=== PATIENT | female | born 1945 | race Caucasian/White ===

== ENCOUNTER → 2017-09-11 | Outpatient (CLI) | payer MEDICARE, OTHER ==
[2017-09-11 09:09] LABS: Basophils % (A) 0 %; CH 30.5; CHCM 32.6; Eosinophils # (A) 0.4 k/uL (0-0.7); Eosinophils % (A) 5 %; HCT 38.9 % (34.0-46.0); HDW 2.73; HGB 12.6 gm/dL (11.4-16.0); Luc # (Auto) 0.22; Luc % (Auto) 3; Lymphocytes # (A) 1.4 k/uL (1.0-4.8); Lymphocytes % (A) 19 %; MCH 30.3 pg (25.0-35.0); MCHC 32.3 g/dL (31.0-37.0); Mean Platelet Volume 8.4; Monocytes # (A) 0.7 k/uL (0-1.0); Monocytes % (A) 9 %; Neutrophils # (A) 4.7 k/uL (1.3-7.7); Neutrophils % (A) 64 %; RBC 4.14 m/uL (3.80-5.40); RDW 13.5 % (11.5-15.5); WBC 7.3 k/uL (3.8-10.6); WBC (Perox) 7.12
[2017-09-11 09:14] LABS: ALT 44 U/L (9-52); AST 34 U/L (14-36); Alkaline Phosphatase 96 U/L (38-126); Anion Gap 10 mmol/L; Blood Urea Nitrogen 19 mg/dL (7-17); Calcium 9.3 mg/dL (8.4-10.2); Carbon Dioxide 30 mmol/L (22-30); Chloride 102 mmol/L (98-107); Cholesterol 159 mg/dL (<200); Glucose 93 mg/dL (74-99); HDL Cholesterol 61 mg/dL (40-60); Non-African American GFR(MDRD) >60 (>60 ml/min/1.73 sqM); Potassium 3.8 mmol/L (3.5-5.1); Sodium 142 mmol/L (137-145); Total Bilirubin 0.4 mg/dL (0.2-1.3); Total Protein 7.1 g/dL (6.3-8.2)
== END | disposition home or self-care (01) ==
LOC: LABWHC1 08:24
PROVIDERS: ATTEND Internal Medicine Infectious Disease
DX: E78.00 Pure hypercholesterolemia, unspecified (principal); E03.8 Other specified hypothyroidism; E55.9 Vitamin D deficiency, unspecified; I10 Essential (primary) hypertension
CPT/HCPCS: 36415; 80053; 80061; 82306; 84439; 84443; 85025

== ENCOUNTER → 2018-06-03 | Outpatient (CLI) | payer MEDICARE, OTHER ==
[2018-06-03 10:15] LABS: Basophils % (A) 0 %; Eosinophils # (A) 0.3 k/uL (0-0.7); Eosinophils % (A) 4 %; HCT 37.9 % (34.0-46.0); HGB 12.6 gm/dL (11.4-16.0); Lymphocytes # (A) 1.6 k/uL (1.0-4.8); Lymphocytes % (A) 25 %; MCH 30.5 pg (25.0-35.0); MCHC 33.2 g/dL (31.0-37.0); MCV 91.8 fL (80.0-100.0); Mean Platelet Volume 7.8; Monocytes # (A) 0.4 k/uL (0-1.0); Monocytes % (A) 7 %; Neutrophils # (A) 3.9 k/uL (1.3-7.7); Neutrophils % (A) 60 %; Platelet Count 216 k/uL (150-450); RBC 4.13 m/uL (3.80-5.40); RDW 14.2 % (11.5-15.5); WBC 6.5 k/uL (3.8-10.6)
[2018-06-03 11:58] LABS: Calcium 9.6 mg/dL (8.4-10.2); Potassium 4.2 mmol/L (3.5-5.1)
[2018-06-03 12:15] LABS: T4, Free (Free Thyroxine) 0.91 ng/dL (0.78-2.19)
== END | disposition home or self-care (01) ==
LOC: LABWHC1 09:45
PROVIDERS: ATTEND Internal Medicine Infectious Disease
DX: E78.00 Pure hypercholesterolemia, unspecified (principal); I10 Essential (primary) hypertension; E03.9 Hypothyroidism, unspecified; E55.9 Vitamin D deficiency, unspecified
CPT/HCPCS: 36415; 80048; 82306; 84439; 84443; 84450; 84460; 85025

== ENCOUNTER → 2020-02-23 | Outpatient (CLI) | payer MEDICARE ==
[2020-02-23 09:49] LABS: Basophils % (A) 0 %; Eosinophils # (A) 0.6 k/uL (0-0.7); Eosinophils % (A) 8 %; HCT 37.7 % (34.0-46.0); Lymphocytes # (A) 1.5 k/uL (1.0-4.8); Lymphocytes % (A) 20 %; MCH 28.9 pg (25.0-35.0); MCHC 31.9 g/dL (31.0-37.0); MCV 90.6 fL (80.0-100.0); Mean Platelet Volume 8.7; Monocytes # (A) 0.5 k/uL (0-1.0); Monocytes % (A) 7 %; Neutrophils # (A) 4.5 k/uL (1.3-7.7); Neutrophils % (A) 62 %; Platelet Count 192 k/uL (150-450); RBC 4.16 m/uL (3.80-5.40); RDW 13.9 % (11.5-15.5); WBC 7.3 k/uL (3.8-10.6)
[2020-02-23 17:25] LABS: African American GFR (CKD) 72.5 (60.0-200.0); Albumin 4.1 g/dL (3.80-4.90); Albumin/Globulin Ratio 1.71 (1.60-3.17); Anion Gap 9.9 mmol/L (4.00-12.00); BUN/Creat Ratio 22.22 Ratio (12.00-20.00); Calcium 9.2 mg/dL (8.7-10.3); Carbon Dioxide 31.1 mmol/L (21.6-31.8); Chol/HDL Ratio 2.79; Globulin 2.4 g/dL (1.6-3.3); LDL Cholesterol,Calculated 72.6 mg/dL (0.0-131.0); Non-African American GFR(CKD) 62.5 (60.0-200.0); Potassium 3.5 mmol/L (3.5-5.5); Total Bilirubin 0.5 mg/dL (0.2-1.2); Total Protein 6.5 g/dL (6.2-8.2); VLDL Calculation 27.4 mg/dL (5.00-40.00)
== END | disposition home or self-care (01) ==
LOC: LABWHC1 08:58
PROVIDERS: ATTEND Internal Medicine Infectious Disease
DX: E78.00 Pure hypercholesterolemia, unspecified (principal); E03.9 Hypothyroidism, unspecified; E55.9 Vitamin D deficiency, unspecified
CPT/HCPCS: 36415; 80053; 80061; 82306; 85025

== ENCOUNTER → 2020-10-10 | Outpatient (CLI) | payer MEDICARE ==
[2020-10-10 10:41] LABS: Basophils % (A) 1 %; Eosinophils # (A) 0.5 k/uL (0-0.7); Eosinophils % (A) 6 %; HGB 12.1 gm/dL (11.4-16.0); Lymphocytes # (A) 1.7 k/uL (1.0-4.8); Lymphocytes % (A) 21 %; MCH 29.2 pg (25.0-35.0); MCHC 32.7 g/dL (31.0-37.0); MCV 89.4 fL (80.0-100.0); Mean Platelet Volume 8.5; Monocytes # (A) 0.5 k/uL (0-1.0); Monocytes % (A) 6 %; Neutrophils # (A) 5.2 k/uL (1.3-7.7); Neutrophils % (A) 63 %; Platelet Count 220 k/uL (150-450); RBC 4.14 m/uL (3.80-5.40); RDW 14.6 % (11.5-15.5); WBC 8.3 k/uL (3.8-10.6)
[2020-10-10 18:48] LABS: African American GFR (CKD) 63.4 (60.0-200.0); Anion Gap 10.5 mmol/L (4.00-12.00); Calcium 9.2 mg/dL (8.7-10.3); Carbon Dioxide 29.5 mmol/L (21.6-31.8); Chol/HDL Ratio 2.89; LDL Cholesterol,Calculated 79.6 mg/dL (0.0-131.0); Non-African American GFR(CKD) 54.7 (60.0-200.0); Potassium 3.6 mmol/L (3.5-5.5); VLDL Calculation 26.4 mg/dL (5.00-40.00)
[2020-10-10 19:22] LABS: Hemoglobin A1C 6.3 % (4.0-6.0)
== END | disposition home or self-care (01) ==
LOC: LABWHC1 09:44
PROVIDERS: ATTEND Internal Medicine Infectious Disease
DX: E03.9 Hypothyroidism, unspecified (principal); E11.9 Type 2 diabetes mellitus without complications; E55.9 Vitamin D deficiency, unspecified; E78.00 Pure hypercholesterolemia, unspecified; I10 Essential (primary) hypertension
CPT/HCPCS: 36415; 80048; 80061; 82306; 83036; 84439; 84443; 85025

== ENCOUNTER 2021-03-04 15:04 | Observation (INO) | payer MEDICARE ==
[2021-03-04] MEDS: ASPIRIN 81 MG PO STA ×2 (16:05→16:07)
[2021-03-04 16:06] LABS: Basophils % (A) 0 %; Eosinophils # (A) 0.6 k/uL (0-0.7); Eosinophils % (A) 6 %; HCT 36.2 % (34.0-46.0); HGB 12.4 gm/dL (11.4-16.0); Lymphocytes # (A) 1.7 k/uL (1.0-4.8); Lymphocytes % (A) 15 %; MCHC 34.3 g/dL (31.0-37.0); MCV 87.6 fL (80.0-100.0); Mean Platelet Volume 8.8; Monocytes # (A) 0.7 k/uL (0-1.0); Monocytes % (A) 6 %; Neutrophils % (A) 71 %; Platelet Count 227 k/uL (150-450); RBC 4.13 m/uL (3.80-5.40); RDW 14.1 % (11.5-15.5); WBC 11.2 k/uL (3.8-10.6)
--- NOTE | 2021-03-04 16:14 | ED ---
General Adult HPI - General Chief complaint: Chest Pain Stated complaint: Chest pain Time Seen by Provider: 03/04/21 15:07 Source: patient, RN/MD, RN notes reviewed Mode of arrival: wheelchair Limitations: no limitations - History of Present Illness Initial comments: Patient is a pleasant 75-year-old female presenting to the emergency Department with complaints of chest discomfort. Symptoms have been intermittent over the past week. Difficulty describing symptoms. No radiation. Patient does have occasional dyspnea however is unclear whether or not it is associated with chest discomfort or from her chronic COPD/ALLERGIES. Patient does have occasional associated sweating. No nausea. Patient did see Dr. Felder prior to arrival with concern regarding her EKG and symptoms. No chest discomfort at this time - Related Data Home Medications Medication Instructions Recorded Confirmed Albuterol Sulfate [Proair Hfa] 2 puff INHALATION RT-Q6H PRN 03/04/21 03/04/21 Aspirin EC [Ecotrin] 325 mg PO DAILY 03/04/21 03/04/21 Atenolol [Tenormin] 50 mg PO DAILY 03/04/21 03/04/21 Atorvastatin [Lipitor] 10 mg PO HS 03/04/21 03/04/21 Biotin 10,000 mcg PO DAILY 03/04/21 03/04/21 Budesonide/Formoterol Fumarate 2 puff INHALATION RT-BID 03/04/21 03/04/21 [Symbicort 160-4.5 Mcg Inhaler] Furosemide [Lasix] 40 mg PO DAILY 03/04/21 03/04/21 Levalbuterol Nebulized [Xopenex 1.25 mg INHALATION RT-QID PRN 03/04/21 03/04/21 Nebulized] Levothyroxine Sodium [Synthroid] 88 mcg PO DAILY 03/04/21 03/04/21 Loratadine 10 mg PO DAILY 03/04/21 03/04/21 Losartan [Cozaar] 50 mg PO DAILY 03/04/21 03/04/21 Montelukast Sodium [Singulair] 10 mg PO HS 03/04/21 03/04/21 Multivitamins, Thera [Multivitamin 1 tab PO DAILY 03/04/21 03/04/21 (formulary)] Mupirocin 2% Oint [Bactroban 2% 1 applic EA NOSTRIL BID 03/04/21 03/04/21 Oint] Omeprazole [PriLOSEC] 40 mg PO HS 03/04/21 03/04/21 Potassium Chloride ER [K-Dur 20] 20 meq PO DAILY@1700 03/04/21 03/04/21 Tiotropium 2.5 Mcg/Puff [Spiriva 2 puff INHALATION RT-DAILY 03/04/21 03/04/21 Respimat 2.5 Mcg] Vit C/E/Zn/Coppr/Lutein/Zeaxan 1 cap PO BID 03/04/21 03/04/21 [Preservision Areds 2 Softgel] Allergies Allergy/AdvReac Type Severity Reaction Status Date / Time No Known Allergies Allergy Verified 03/04/21 16:28 Review of Systems ROS Statement: Those systems with pertinent positive or pertinent negative responses have been documented in the HPI. ROS Other: All systems not noted in ROS Statement are negative. Constitutional: Denies: fever Eyes: Denies: eye pain ENT: Denies: ear pain Respiratory: Reports: as per HPI. Denies: cough Cardiovascular: Reports: as per HPI, chest pain Endocrine: Denies: fatigue Gastrointestinal: Denies: abdominal pain Genitourinary: Denies: urgency Musculoskeletal: Denies: back pain Skin: Denies: rash Neurological: Denies: weakness Past Medical History Past Medical History: Asthma, COPD, GERD/Reflux, Hypertension, Thyroid Disorder History of Any Multi-Drug Resistant Organisms: None Reported Past Surgical History: Hysterectomy, Orthopedic Surgery Additional Past Surgical History / Comment(s): right knee Past Psychological History: No Psychological Hx Reported Smoking Status: Never smoker Past Alcohol Use History: Rare Past Drug Use History: None Reported General Exam Limitations: no limitations General appearance: alert, in no apparent distress Head exam: Present: atraumatic Eye exam: Present: normal appearance Neck exam: Present: normal inspection Respiratory exam: Present: normal lung sounds bilaterally. Absent: chest wall tenderness Cardiovascular Exam: Present: regular rate, normal rhythm Expanded Peripheral pulses: 2+: Radial (R), Radial (L), Posterior Tibialis (R), Posterior Tibialis (L) GI/Abdominal exam: Present: soft. Absent: tenderness Extremities exam: Present: normal inspection. Absent: pedal edema, calf tenderness Neurological exam: Present: alert Psychiatric exam: Present: normal affect, normal mood Skin exam: Present: normal color Course Vital Signs 03/04/21 03/04/21 15:08 16:07 Temperature 98.3 F Pulse Rate 95 96 Respiratory 22 18 Rate Blood Pressure 136/71 117/64 O2 Sat by Pulse 99 98 Oximetry EKG Findings - EKG Comments: EKG Findings:: Normal sinus rhythm with a rate of 99. IN 1:30. QRS 88. QT 372. QTC 477. Left axis. Left anterior fascicular block. LVH criteria. Nonspecific ST-T. Medical Decision Making - Medical Decision Making Patient reevaluated. Patient and family updated. Case was discussed with Dr. Feledr who did want his patient admitted with cardiology consult and IV heparin. - Lab Data Result diagrams: 03/04/21 15:53 03/04/21 15:53 Lab Results 03/04/21 03/04/21 03/04/21 Range/Units 15:53 15:53 15:53 WBC 11.2 H (3.8-10.6) k/uL RBC 4.13 (3.80-5.40) m/uL Hgb 12.4 (11.4-16.0) gm/dL Hct 36.2 (34.0-46.0) % MCV 87.6 (80.0-100.0) fL MCH 30.0 (25.0-35.0) pg MCHC 34.3 (31.0-37.0) g/dL RDW 14.1 (11.5-15.5) % Plt Count 227 (150-450) k/uL MPV 8.8 Neutrophils % 71 % Lymphocytes % 15 % Monocytes % 6 % Eosinophils % 6 % Basophils % 0 % Neutrophils # 8.0 H (1.3-7.7) k/uL Lymphocytes # 1.7 (1.0-4.8) k/uL Monocytes # 0.7 (0-1.0) k/uL Eosinophils # 0.6 (0-0.7) k/uL Basophils # 0.0 (0-0.2) k/uL PT 9.9 (9.0-12.0) sec INR 0.9 (<1.2) APTT 22.7 (22.0-30.0) sec Sodium 138 (137-145) mmol/L Potassium 3.6 (3.5-5.1) mmol/L Chloride 100 (98-107) mmol/L Carbon Dioxide 27 (22-30) mmol/L Anion Gap 11 mmol/L BUN 21 H (7-17) mg/dL Creatinine 0.86 (0.52-1.04) mg/dL Est GFR (CKD-EPI)AfAm 77 (>60 ml/min/1.73 sqM) Est GFR (CKD-EPI)NonAf 66 (>60 ml/min/1.73 sqM) Glucose 119 H (74-99) mg/dL Calcium 9.6 (8.4-10.2) mg/dL Magnesium 1.5 L (1.6-2.3) mg/dL Total Bilirubin 0.4 (0.2-1.3) mg/dL AST 42 H (14-36) U/L ALT 41 H (4-34) U/L Alkaline Phosphatase 159 H (38-126) U/L Troponin I (0.000-0.034) ng/mL Total Protein 7.4 (6.3-8.2) g/dL Albumin 4.2 (3.5-5.0) g/dL 03/04/21 Range/Units 15:53 WBC (3.8-10.6) k/uL RBC (3.80-5.40) m/uL Hgb (11.4-16.0) gm/dL Hct (34.0-46.0) % MCV (80.0-100.0) fL MCH (25.0-35.0) pg MCHC (31.0-37.0) g/dL RDW (11.5-15.5) % Plt Count (150-450) k/uL MPV Neutrophils % % Lymphocytes % % Monocytes % % Eosinophils % % Basophils % % Neutrophils # (1.3-7.7) k/uL Lymphocytes # (1.0-4.8) k/uL Monocytes # (0-1.0) k/uL Eosinophils # (0-0.7) k/uL Basophils # (0-0.2) k/uL PT (9.0-12.0) sec INR (<1.2) APTT (22.0-30.0) sec Sodium (137-145) mmol/L Potassium (3.5-5.1) mmol/L Chloride (98-107) mmol/L Carbon Dioxide (22-30) mmol/L Anion Gap mmol/L BUN (7-17) mg/dL Creatinine (0.52-1.04) mg/dL Est GFR (CKD-EPI)AfAm (>60 ml/min/1.73 sqM) Est GFR (CKD-EPI)NonAf (>60 ml/min/1.73 sqM) Glucose (74-99) mg/dL Calcium (8.4-10.2) mg/dL Magnesium (1.6-2.3) mg/dL Total Bilirubin (0.2-1.3) mg/dL AST (14-36) U/L ALT (4-34) U/L Alkaline Phosphatase (38-126) U/L Troponin I <0.012 (0.000-0.034) ng/mL Total Protein (6.3-8.2) g/dL Albumin (3.5-5.0) g/dL - Radiology Data Radiology results: image reviewed (Chest x-ray shows no acute process) Critical Care Time Critical Care Time: Yes Total Critical Care Time: 31 Disposition Clinical Impression: Unstable angina pectoris Disposition: ADMITTED IP TO THIS HOSP Is patient prescribed a controlled substance at d/c from ED?: No Referrals: Kiley Felder MD [Primary Care Provider] - 1-2 days Decision Time: 17:28
[2021-03-04 16:15] LABS: INR 0.9 (<1.2); Partial Thromboplastin Time 22.7 sec (22.0-30.0); Prothrombin Time 9.9 sec (9.0-12.0)
[2021-03-04 16:25] LABS: Albumin 4.2 g/dL (3.5-5.0); Calcium 9.6 mg/dL (8.4-10.2); Magnesium 1.5 mg/dL (1.6-2.3); Potassium 3.6 mmol/L (3.5-5.1); Total Bilirubin 0.4 mg/dL (0.2-1.3); Total Protein 7.4 g/dL (6.3-8.2)
--- NOTE | 2021-03-04 17:03 | XR ---
EXAMINATION TYPE: XR chest 2V DATE OF EXAM: 03/04/2021 COMPARISON: NONE HISTORY: Chest pain TECHNIQUE: 2 views FINDINGS: Heart is normal. Thoracic aorta is atheromatous. Lungs are clear of infiltrate. There is no heart failure. There is osteopenia and mild compression deformity of numerous thoracic vertebra up to 20%. There is no pleural effusion. IMPRESSION: No active cardiopulmonary disease. Minimal pulmonary fibrotic changes. Normal heart.
[2021-03-04] MEDS ORDERED: HEPARIN SODIUM 1,000 UN/ML (10ML VL) IV ONE (17:29)
[2021-03-04] MEDS ORDERED: HEPARIN SOD,PORK IN 0.45% NACL 25,000 UNIT in 0.45% NACL 1 250ML.BAG IV SCH (17:30)
[2021-03-04] MEDS: NITROGLYCERIN OINT 1 INCH/GM PACKET TOPICAL SCH ×2 (19:14→23:53)
[2021-03-04] MEDS ORDERED: NON FORMULARY DRUG (Levalbuterol Nebulized 1.25 MG/3 ML Ml) INHALATION PRN (20:35)
[2021-03-04] MEDS ORDERED: DILTIAZEM DRIP BOLUS FROM BAG 1 MG SOLN IV ONE (21:00)
[2021-03-04] MEDS: DILTIAZEM 125 MG in SODIUM CHLORIDE 0.9% 100 ML IV SCH (21:06)
[2021-03-04] MEDS: PANTOPRAZOLE 40 MG TABLET PO SCH (23:05)
[2021-03-04] MEDS: METOPROLOL TARTRATE 50 MG TAB PO SCH (23:05)
[2021-03-04] MEDS: MONTELUKAST 10 MG TAB PO SCH (23:05)
[2021-03-04] MEDS: ATORVASTATIN 10 MG TAB PO SCH (23:06)
[2021-03-05 01:52] VITALS: RESP 16
[2021-03-05] MEDS: ALBUTEROL NEBULIZED 2.5 MG/3 ML INHALATION PRN ×3 (03:01→12:07)
[2021-03-05] MEDS: NITROGLYCERIN OINT 1 INCH/GM PACKET TOPICAL SCH (05:32)
[2021-03-05 05:44] LABS: Basophils % (A) 0 %; Eosinophils # (A) 0.8 k/uL (0-0.7); Eosinophils % (A) 8 %; HCT 33.9 % (34.0-46.0); HGB 11.6 gm/dL (11.4-16.0); Lymphocytes % (A) 20 %; MCH 30.3 pg (25.0-35.0); MCHC 34.2 g/dL (31.0-37.0); MCV 88.5 fL (80.0-100.0); Monocytes # (A) 0.7 k/uL (0-1.0); Monocytes % (A) 7 %; Neutrophils % (A) 62 %; Platelet Count 203 k/uL (150-450); RBC 3.83 m/uL (3.80-5.40); RDW 14.1 % (11.5-15.5); WBC 9.6 k/uL (3.8-10.6)
[2021-03-05 06:16] LABS: ALT 36 U/L (4-34); AST 43 U/L (14-36); African American GFR (CKD) 82 (>60 ml/min/1.73 sqM); Albumin 3.4 g/dL (3.5-5.0); Albumin/Globulin Ratio 1.2; Alkaline Phosphatase 127 U/L (38-126); Anion Gap 5 mmol/L; Blood Urea Nitrogen 18 mg/dL (7-17); Calcium 8.7 mg/dL (8.4-10.2); Carbon Dioxide 29 mmol/L (22-30); Chloride 102 mmol/L (98-107); Cholesterol 148 mg/dL (<200); Globulin 2.8 g/dL; Glucose 105 mg/dL (74-99); HDL Cholesterol 57 mg/dL (40-60); LDL Cholesterol,Calculated 64 mg/dL (0-99); Non-African American GFR(CKD) 71 (>60 ml/min/1.73 sqM); Potassium 3.7 mmol/L (3.5-5.1); Sodium 136 mmol/L (137-145); Total Bilirubin 0.8 mg/dL (0.2-1.3); Total Protein 6.2 g/dL (6.3-8.2); Triglycerides 136 mg/dL (<150)
[2021-03-05] MEDS: SYMBICORT 160-4.5 MCG INHALER INHALATION SCH ×2 (07:36→20:06)
[2021-03-05] MEDS: TIOTROPIUM 2.5 MCG INHALER INHALATION SCH (07:36)
[2021-03-05] MEDS ORDERED: Magnesium Replacement Protocol 1 EACH MISC MISCELLANE PRN (07:42)
[2021-03-05] MEDS: MAGNESIUM SULFATE-D5W PMX 1 GM in DEXTROSE/WATER 1 100ML.BAG IVPB SCH ×2 (08:44→10:06)
[2021-03-05] MEDS: FUROSEMIDE 40 MG TAB PO SCH (08:45)
[2021-03-05] MEDS: LOSARTAN 50 MG TAB PO SCH (08:45)
[2021-03-05] MEDS: METOPROLOL TARTRATE 50 MG TAB PO SCH ×2 (08:45→20:21)
[2021-03-05] MEDS: LEVOTHYROXINE 88 MCG TAB PO SCH (08:45)
[2021-03-05] MEDS: LORATADINE 10 MG TAB PO SCH (08:45)
[2021-03-05] MEDS: MULTIVITAMINS, THERA 1 EACH TAB PO SCH (08:45)
[2021-03-05] MEDS ORDERED: ASPIRIN 81 MG PO SCH (09:00)
[2021-03-05] MEDS ORDERED: ASPIRIN 325 MG TAB PO SCH (09:00)
--- NOTE | 2021-03-05 10:01 | P.CRDCN ---
History of Present Illness History of present illness: HISTORY OF PRESENTING ILLNESS This is a pleasant 75-year-old female past medical history significant for hypertension, dyslipidemia and COPD. She follows in the office with Dr Maxi alcantara. We have been asked to see in consultation for chest pain. She presented to the hospital yesterday with an episode of tightness in the chest in the midsternal region associated with palpitations and a rapid heartbeat. Episode lasted for approximately 10 minutes and resolved on its own. During this episode she also felt mildly short of breath. This occurred again last night was she was in the hospital. EKG obtained at that time revealed atrial fibrillation with rapid ventricular rate. She was momentarily started on a Cardizem drip and spontaneously converted back to sinus mechanism. This morning she continues to maintain sinus mechanism she has had no further symptoms of chest discomfort. Chest x-ray is negative for an acute cardiopulmonary process with minimal pulmonary fibrotic changes noted. Laboratory data reviewed, WBC on admission 11.2 repeat today 9.6, hemoglobin 11.6, platelets 203, sodium 136, potassium 3.7, creatinine 0.81, magnesium on admission 1.5, troponins negative 3, LDL 64 and HDL 57. Current daily cardiac medications include atenolol 50 mg daily, atorvastatin 10 mg daily, Lasix 40 mg daily, losartan 50 mg daily and aspirin 325 mg daily. REVIEW OF SYSTEMS At the time of my exam: CONSTITUTIONAL: Denies fever or chills. CARDIOVASCULAR: Denies chest pain, shortness of breath, orthopnea, PND or palpitations. RESPIRATORY: Denies cough. GASTROINTESTINAL: Denies abdominal pain, diarrhea, constipation, nausea or vomiting. MUSCULOSKELETAL: Denies myalgias. NEUROLOGIC: Denies numbness, tingling, headacbe or weakness. ENDOCRINE: Denies fatigue, weight change, polydipsia or polyurina. GENITOURINARY: Denies burning, hematuria or urgency with micturation. HEMATOLOGIC: Denies history of anemia or bleeding. PHYSICAL EXAMINATION Blood pressure 125/74 heart rate 81 afebrile and maintaining oxygen saturation on nasal cannula. CONSTITUTIONAL: No apparent distress. HEENT: Head is normocephalic. Pupils are equal, round. Sclerae anicteric. Mucous membranes of the mouth are moist. No JVD. No carotid bruit. CHEST EXAMINATION: Lungs are clear to auscultation. No chest wall tenderness is noted on palpation or with deep breathing. HEART EXAMINATION: Regular rate and rhythm. S1, S2 heard. Systolic ejection murmur at the base, no gallops or rub. ABDOMEN: Soft, nontender. Positive bowel sounds. EXTREMITIES: 2+ peripheral pulses, no lower extremity edema and no calf tenderness. NEUROLOGIC EXAMINATION: Patient is awake, alert and oriented x3. ASSESSMENT Chest pain and palpitations New onset paroxysmal atrial fibrillation Hypomagnesemia Hypertension Dyslipidemia Obesity, BMI 32 PLAN An acute coronary event has been ruled out. Replace magnesium per protocol. Obtain 2-D echocardiogram and Doppler study to assess cardiac structure and function. Check the cost of Eliquis 5 mg twice a day. Obtain records from her primary child care counselor previous cardiac testing for review. Further recommendations to follow based upon clinical course. Thank you kindly for this consultation. Nurse Practitioner note has been reviewed, I agree with a documented findings and plan of care. Patient was seen and examined. Past Medical History Past Medical History: Asthma, COPD, GERD/Reflux, Hypertension, Thyroid Disorder History of Any Multi-Drug Resistant Organisms: None Reported Past Surgical History: Hysterectomy, Orthopedic Surgery Additional Past Surgical History / Comment(s): right knee Past Anesthesia/Blood Transfusion Reactions: Postoperative Nausea & Vomiting (PONV) Past Psychological History: No Psychological Hx Reported Smoking Status: Never smoker Past Alcohol Use History: Rare Past Drug Use History: None Reported Medications and Allergies Home Medications Medication Instructions Recorded Confirmed Type Albuterol Sulfate [Proair Hfa] 2 puff INHALATION RT-Q6H PRN 03/04/21 03/04/21 History Aspirin EC [Ecotrin] 325 mg PO DAILY 03/04/21 03/04/21 History Atenolol [Tenormin] 50 mg PO DAILY 03/04/21 03/04/21 History Atorvastatin [Lipitor] 10 mg PO HS 03/04/21 03/04/21 History Biotin 10,000 mcg PO DAILY 03/04/21 03/04/21 History Budesonide/Formoterol Fumarate 2 puff INHALATION RT-BID 03/04/21 03/04/21 History [Symbicort 160-4.5 Mcg Inhaler] Furosemide [Lasix] 40 mg PO DAILY 03/04/21 03/04/21 History Levalbuterol Nebulized [Xopenex 1.25 mg INHALATION RT-QID PRN 03/04/21 03/04/21 History Nebulized] Levothyroxine Sodium [Synthroid] 88 mcg PO DAILY 03/04/21 03/04/21 History Loratadine 10 mg PO DAILY 03/04/21 03/04/21 History Losartan [Cozaar] 50 mg PO DAILY 03/04/21 03/04/21 History Montelukast Sodium [Singulair] 10 mg PO HS 03/04/21 03/04/21 History Multivitamins, Thera [Multivitamin 1 tab PO DAILY 03/04/21 03/04/21 History (formulary)] Mupirocin 2% Oint [Bactroban 2% 1 applic EA NOSTRIL BID 03/04/21 03/04/21 History Oint] Omeprazole [PriLOSEC] 40 mg PO HS 03/04/21 03/04/21 History Potassium Chloride ER [K-Dur 20] 20 meq PO DAILY@1700 03/04/21 03/04/21 History Tiotropium 2.5 Mcg/Puff [Spiriva 2 puff INHALATION RT-DAILY 03/04/21 03/04/21 History Respimat 2.5 Mcg] Vit C/E/Zn/Coppr/Lutein/Zeaxan 1 cap PO BID 03/04/21 03/04/21 History [Preservision Areds 2 Softgel] Apixaban [Eliquis] 5 mg PO BID #60 tab 03/05/21 Rx Allergies Allergy/AdvReac Type Severity Reaction Status Date / Time No Known Allergies Allergy Verified 03/04/21 16:28 Physical Exam Vitals: Vital Signs Temp Pulse Pulse Resp BP BP Pulse Ox 03/05/21 07:49 81 03/05/21 07:36 79 94 L 03/05/21 03:08 84 03/05/21 03:02 84 03/05/21 02:00 97.5 F L 66 16 125/74 96 03/05/21 00:00 65 114/74 92 L 03/04/21 23:45 73 135/68 92 L 03/04/21 23:30 71 124/69 95 03/04/21 23:15 90 129/69 98 03/04/21 23:00 88 145/71 98 03/04/21 22:45 96 121/71 96 03/04/21 22:30 92 118/73 97 03/04/21 22:15 95 138/76 98 03/04/21 21:55 82 162/78 98 03/04/21 21:40 84 16 169/50 99 03/04/21 21:25 82 16 134/67 99 03/04/21 21:10 84 16 126/65 99 03/04/21 21:05 16 135/70 99 03/04/21 20:00 159 H 20 03/04/21 19:50 98.0 F 159 H 20 135/88 98 03/04/21 19:17 98.1 F 93 18 129/75 98 03/04/21 16:07 96 18 117/64 98 03/04/21 15:08 98.3 F 95 22 136/71 99 Intake and Output 03/04/21 03/05/21 03/05/21 22:59 06:59 14:59 Other: # Voids 1 1 Weight 84.822 kg Results 03/05/21 05:05 03/05/21 05:05 Cardiac Enzymes 03/04/21 03/04/21 03/04/21 Range/Units 15:53 15:53 19:25 AST 42 H (14-36) U/L Troponin I <0.012 <0.012 (0.000-0.034) ng/mL 03/05/21 03/05/21 Range/Units 05:05 05:05 AST 43 H (14-36) U/L Troponin I <0.012 (0.000-0.034) ng/mL Coagulation 03/04/21 03/04/21 03/04/21 Range/Units 15:53 19:25 23:29 PT 9.9 (9.0-12.0) sec APTT 22.7 22.7 49.8 H (22.0-30.0) sec Lipids 03/05/21 Range/Units 05:05 Triglycerides 136 (<150) mg/dL Cholesterol 148 (<200) mg/dL HDL Cholesterol 57 (40-60) mg/dL CBC 03/04/21 03/05/21 Range/Units 15:53 05:05 WBC 11.2 H 9.6 (3.8-10.6) k/uL RBC 4.13 3.83 (3.80-5.40) m/uL Hgb 12.4 11.6 (11.4-16.0) gm/dL Hct 36.2 33.9 L (34.0-46.0) % Plt Count 227 203 (150-450) k/uL Comprehensive Metabolic Panel 03/04/21 03/05/21 Range/Units 15:53 05:05 Sodium 138 136 L (137-145) mmol/L Potassium 3.6 3.7 (3.5-5.1) mmol/L Chloride 100 102 (98-107) mmol/L Carbon Dioxide 27 29 (22-30) mmol/L BUN 21 H 18 H (7-17) mg/dL Creatinine 0.86 0.81 (0.52-1.04) mg/dL Glucose 119 H 105 H (74-99) mg/dL Calcium 9.6 8.7 (8.4-10.2) mg/dL AST 42 H 43 H (14-36) U/L ALT 41 H 36 H (4-34) U/L Alkaline Phosphatase 159 H 127 H (38-126) U/L Total Protein 7.4 6.2 L (6.3-8.2) g/dL Albumin 4.2 3.4 L (3.5-5.0) g/dL Current Medications Generic Name Dose Route Start Last Admin Trade Name Freq PRN Reason Stop Dose Admin Albuterol Sulfate 2.5 mg 03/04/21 20:35 03/05/21 07:34 Albuterol Nebulized 2.5 Mg/3 Ml INHALATION 2.5 mg RT-Q6H PRN Administration Shortness Of Breath Aspirin 81 mg 03/05/21 09:00 Aspirin 81 Mg PO DAILY [facility] Atorvastatin Calcium 10 mg 03/04/21 21:00 03/04/21 23:06 Atorvastatin 10 Mg Tab PO 10 mg HS CORI Administration Budesonide/Formoterol Fumarate 2 puff 03/05/21 08:00 03/05/21 07:36 Symbicort 160-4.5 Mcg Inhaler INHALATION 2 puff RT-BID CORI Administration Furosemide 40 mg 03/05/21 09:00 Furosemide 40 Mg Tab PO DAILY CORI Heparin Sodium/Sodium Chloride 250 mls @ 9.924 mls/hr 03/04/21 17:30 03/04/21 19:16 25,000 unit/ Sodium Chloride IV 11.7 units/kg/hr .Q24H CORI 9.924 mls/hr Administration Protocol 11.7 UNITS/KG/HR Diltiazem HCl 125 mg/ Sodium 125 mls @ 5 mls/hr 03/04/21 21:00 03/04/21 21:06 Chloride IV 5 mg/hr .Q24H CORI 5 mls/hr Administration 5 MG/HR Magnesium Sulfate/Dextrose 1 100 mls @ 100 mls/hr 03/05/21 08:00 gm/ IV Solution IVPB 03/05/21 09:59 Q1H CORI Levothyroxine Sodium 88 mcg 03/05/21 06:30 Levothyroxine 88 [place] 0630 CORI Loratadine 10 mg 03/05/21 09:00 Loratadine 10 Mg Tab PO DAILY [facility]I Losartan Potassium 50 mg 03/05/21 09:00 Losartan 50 Mg Tab PO DAILY [facility]I Metoprolol Tartrate 50 mg 03/04/21 21:00 03/04/21 23:05 Metoprolol Tartrate 50 Mg Tab PO 50 mg BID CORI Administration Miscellaneous Information 1 each 03/05/21 07:42 Magnesium Replacement Protocol 1 Each Misc MISCELLANE DAILY PRN Per Protocol Protocol Montelukast Sodium 10 mg 03/04/21 21:00 03/04/21 23:05 Montelukast 10 Mg Tab PO 10 mg HS CORI Administration Multivitamins 1 each 03/05/21 09:00 Multivitamins, Thera 1 Each Tab PO DAILY CORI Nitroglycerin 1 inch 03/04/21 18:00 03/05/21 05:32 Nitroglycerin Oint 1 Inch/Gm Packet TOPICAL Not Given Q6HR CORI Pantoprazole Sodium 40 mg 03/04/21 21:00 03/04/21 23:05 Pantoprazole 40 Mg Tablet PO 40 mg HS CORI Administration Potassium Chloride 20 meq 03/05/21 17:00 Potassium Chloride Er 20 Meq Tab.Er PO DAILY@1700 CORI Sodium Chloride 10 ml 03/04/21 21:00 03/04/21 23:06 Sodium Chloride 0.9% Flush 10 Ml Syringe IV 10 ml BID CORI Administration Tiotropium [place] 2 puff 03/05/21 08:00 03/05/21 07:36 Tiotropium 2.5 Mcg Inhaler INHALATION 2 puff RT-DAILY CORI Administration Intake and Output 03/04/21 03/05/21 03/05/21 22:59 06:59 14:59 Other: # Voids 1 1 Weight 84.822 kg 03/05/21 05:05 03/05/21 05:05
--- NOTE | 2021-03-05 11:00 | ECHOF ---
Referral Reason:new onset afib MEASUREMENTS -------- HEIGHT: 162.6 cm WEIGHT: 84.8 kg BP: 117/64 RVIDd: 3.0 cm (< 3.3) IVSd: 1.3 cm (0.6 - 1.1) LVIDd: 4.7 cm (3.9 - 5.3) LVPWd: 1.2 cm (0.6 - 1.1) IVSs: 1.7 cm LVIDs: 2.8 cm LVPWs: 1.4 cm LA Diam: 3.2 cm (2.7 - 3.8) Ao Diam: 3.5 cm (2.0 - 3.7) AV Cusp: 1.9 cm (1.5 - 2.6) MV EXCURSION: 15.135 mm (> 18.000) MV EF SLOPE: 57 mm/s (70 - 150) EPSS: 0.3 cm MV E Arie: 0.84 m/s MV DecT: 295 ms MV A Arie: 0.93 m/s MV E/A Ratio: 0.89 AR PHT: 707 ms RAP: 5.00 mmHg RVSP: 25.31 mmHg FINDINGS -------- Sinus rhythm. This was a technically adequate study. The left ventricular size is normal. There is mild concentric left ventricular hypertrophy. Overa ll left ventricular systolic function is normal with, an EF between 60 - 65 %. The right ventricle is normal in size. The left atrium is normal in size. The right atrium is normal in size. Interatrial and interventricular septum intact. There is mild aortic regurgitation. The mitral valve leaflets are mildly thickened. Mild mitral regurgitation is present. Mild tricuspid regurgitation present. Right ventricular systolic pressure is normal at < 35 mmHg. The pulmonic valve is normal. The aortic root size is normal. Normal inferior vena cava with normal inspiratory collapse consistent with estimated right atrial pre ssure of 5 mmHg. There is no pericardial effusion. CONCLUSIONS -------- 1. The left ventricular size is normal. 2. There is mild concentric left ventricular hypertrophy. 3. Overall left ventricular systolic function is normal with, an EF between 60 - 65 %. 4. There is mild aortic regurgitation. 5. The mitral valve leaflets are mildly thickened. 6. Mild mitral regurgitation is present. 7. Mild tricuspid regurgitation present. 8. There is no pericardial effusion. BUMPER OPERATOR: MAURICE Lopez
[2021-03-05] MEDS ORDERED: APIXABAN 5 MG TAB PO SCH (11:15)
[2021-03-05] MEDS ORDERED: HEPARIN SODIUM 1,000 UN/ML (10ML VL) IV PRN (11:24)
[2021-03-05] MEDS: HEPARIN SOD,PORK IN 0.45% NACL 25,000 UNIT in 0.45% NACL 1 250ML.BAG IV SCH ×2 (11:51→20:25)
[2021-03-05] MEDS ORDERED: ALBUTEROL NEBULIZED 2.5 MG/3 ML INHALATION PRN (13:23)
--- NOTE | 2021-03-05 13:42 | P.HPIM ---
History of Present Illness H&P Date: 03/05/21 HISTORY OF PRESENT ILLNESS This is a 75-year-old female patient with past medical history of hypertension, hyperlipidemia, gastroesophageal reflux disease with esophagitis without bleeding, vitamin D deficiency, ALLERGIC rhinitis, hypothyroidism, COPD, mild persistent ALLERGIC asthma. Patient was in the office yesterday and had complaints of discomfort in her chest midsternal area and EKG was done that showed nonspecific findings which patient was in a sinus rhythm at the time. She now states that her chest discomfort is resolved but she is complaining of w heezing. Her waste reclaimer is Dr. Guzman and she had a heart catheterization done 6 months ago. Patient was brought into [facility] emergency center for evaluation. Temperature was normal, heart rate 95, blood pressure 136/71, pulse ox 99% on room air. EKG was a sinus rhythm WBC 11.2, hemoglobin 12.4 and platelet count 227. Electrolytes were normal. BUN 21 creatinine 0.86. Blood sugar 119. Magnesium 1.5 and was replaced. Total bilirubin 0.4. AST 42, ALT 41, alkaline phosphatase 159. Troponins are negative 3. Triglycerides 136, cholesterol 148, LDL 64, HDL 57. Coronavirus PCR not detected. Chest x-ray shows no acute cardiopulmonary disease. Minimal pulmonary fibrotic changes. Patient was transferred to the observation unit and when arrived was in SVT. Ca rdiology was contacted. Patient performs Valsalva maneuver 2 without improvement. Patient was given adenosine 6 mg and A-Team was called. Patient converted to atrial fibrillation and the 80s. She was then started on Cardizem drip and heparin drip. Cardizem drip was subsequently discontinued. Patient remains in atrial fibrillation with controlled rate. REVIEW OF SYSTEMS Constitutional: No fever, no chills, no night sweats. No weight change. No weakness, fatigue or lethargy. No daytime sleepiness. EENT: No headache. No blurred vision or double vision, no loss of vision. No loss of Hearing, no ringing in the ears, no dizziness. No nasal drainage or congestion. No epistaxis. No sore throat. Lungs: No shortness of breath, cough, no sputum production. Reports wheezing. Cardiovascular: Reported chest pain, no lower extremity edema. Reported palpitations. No paroxysmal nocturnal dyspnea. No orthopnea. No lightheadedness or dizziness. No syncopal episodes. Abdominal: No abdominal pain. No nausea, vomiting. No diarrhea. No constipation. No bloody or tarry stools.. No loss of appetite. Genitourinary: No dysuria, increased frequency, urgency. No urinary retention. Musculoskeletal: No myalgias. No muscle weakness, no gait dysfunction, no frequent falls. No back pain. No neck pain. Integumentary: No wounds, no lesions. No rash or pruritus. No unusual bruising. No change in hair or nails. Neurologic: No aphasia. No facial droop. No change in mentation. No head injury. No headache. No paralysis. No paresthesia. Psychiatric: No depression. No anxiety. No mood swings. Endocrine: No abnormal blood sugars. No weight change. No excessive sweating or thirst. No cold intolerance. SURGICAL HISTORY Bilateral eye surgery, right knee surgery, right foot cyst removal, partial hysterectomy, laser vein surgery. SOCIAL HISTORY PATIENT IS A [employer], NO ALCOHOL USE, NO LOSS OF DRUG USE. PATIENT DRINKS MORE THAN 4 CUPS OF COFFEE DAILY. FAMILY HISTORY Father is at age 62. Mother is at age 86 with a history of Alzheimer's dementia. Patient has 1 brother alive at age 78 with no major medical problems. Patient has 1 sister alive at age 80 with no major medical problems. Patient has 3 daughters with no major medical problems. PHYSICAL EXAMINATION Gen: This is a 75-year-old female. Patient is resting in bed and appears to be comfortable and in no acute distress. HEENT: Head is atraumatic, normocephalic. Pupils equal, round. Sclerae is anicteric. NECK: Supple. No JVD. No lymphadenopathy. No thyromegaly. LUNGS: Clear to auscultation. No wheezes or rhonchi. No intercostal retractions. HEART: First heart sound is depressed, second heart sound is normal, there is a 2/6 systolic ejection murmur at the left sternal border. ABDOMEN: Soft. Bowel sounds are present. No masses. No tenderness. EXTREMITIES: No pedal edema. No calf tenderness. Dorsalis pedis +2 bilaterally. NEUROLOGICAL: Patient is awake, alert and oriented x3. Cranial nerves 2 through 12 are grossly intact. ASSESSMENT AND PLAN 1. Chest pain with negative troponins. Acute coronary syndrome has been ruled out. Cardiology consult appreciated. Continue aspirin 81 mg daily, a torvastatin 10 mg at bedtime. Continue Lopressor 50 mg twice daily. Patient is scheduled for Lexiscan Cardiolite stress test tomorrow. 2. New onset atrial fibrillation, paroxysmal atrial fibrillation. Patient is status post adenosine followed by heparin drip and Cardizem drip. Continue heparin drip, Lopressor 50 mg twice daily. Eliquis cost is being checked. 3. Hypomagnesemia. Status post replacement. Recheck in the morning 4. Hypertension hypertensive cardiovascular disease. Continue losartan 50 mg daily, Lasix 40 mg daily, Lopressor.. 5. Hyperlipidemia. Continue Lipitor 10 mg at bedtime. 6. Seasonal ALLERGIES. Continue loratadine 10 mg daily. 7. Gastroesophageal reflux disease. Continue Protonix 40 mg at bedtime. 8. COPD and Moderate intermittent asthma with exacerbation. Continue Symbicort 1604 0.5 g twice daily, albuterol nebulizer every 6 hours scheduled and as needed for shortness of breath. 9. Hypothyroidism. Continue levothyroxine 88 g daily. Obtain TSH and free T4 level. 10. Mild elevation in liver function tests possibly related to hypoperfusion. Continue to monitor. 11. DVT prophylaxis. Heparin drip. 11. GI prophylaxis. Protonix 40 mg oral at bedtime. 12. COVID-19 testing negative. Patient has been hospitalized during a pandemic. Patient will be admitted to the hospital for a minimum of 2 night stay. DISCHARGE PLAN home Impression and plan of care have been directed as dictated by the signing physician. Lila Frederick nurse practitioner acting as scribe for signing physician. Past Medical History Past Medical History: Asthma, COPD, GERD/Reflux, Hypertension, Thyroid Disorder History of Any Multi-Drug Resistant Organisms: None Reported Past Surgical History: Hysterectomy, Orthopedic Surgery Additional Past Surgical History / Comment(s): right knee Past Anesthesia/Blood Transfusion Reactions: Postoperative Nausea & Vomiting (PONV) Past Psychological History: No Psychological Hx Reported Smoking Status: Never smoker Past Alcohol Use History: Rare Past Drug Use History: None Reported Medications and Allergies Home Medications Medication Instructions Recorded Confirmed Type Albuterol Sulfate [Proair Hfa] 2 puff INHALATION RT-Q6H PRN 03/04/21 03/04/21 History Aspirin EC [Ecotrin] 325 mg PO DAILY 03/04/21 03/04/21 History Atenolol [Tenormin] 50 mg PO DAILY 03/04/21 03/04/21 History Atorvastatin [Lipitor] 10 mg PO HS 03/04/21 03/04/21 History Biotin 10,000 mcg PO DAILY 03/04/21 03/04/21 History Budesonide/Formoterol Fumarate 2 puff INHALATION RT-BID 03/04/21 03/04/21 History [Symbicort 160-4.5 Mcg Inhaler] Furosemide [Lasix] 40 mg PO DAILY 03/04/21 03/04/21 History Levalbuterol Nebulized [Xopenex 1.25 mg INHALATION RT-QID PRN 03/04/21 03/04/21 History Nebulized] Levothyroxine Sodium [Synthroid] 88 mcg PO DAILY 03/04/21 03/04/21 History Loratadine 10 mg PO DAILY 03/04/21 03/04/21 History Losartan [Cozaar] 50 mg PO DAILY 03/04/21 03/04/21 History Montelukast Sodium [Singulair] 10 mg PO HS 03/04/21 03/04/21 History Multivitamins, Thera [Multivitamin 1 tab PO DAILY 03/04/21 03/04/21 History (formulary)] Mupirocin 2% Oint [Bactroban 2% 1 applic EA NOSTRIL BID 03/04/21 03/04/21 History Oint] Omeprazole [PriLOSEC] 40 mg PO HS 03/04/21 03/04/21 History Potassium Chloride ER [K-Dur 20] 20 meq PO DAILY@1700 03/04/21 03/04/21 History Tiotropium 2.5 Mcg/Puff [Spiriva 2 puff INHALATION RT-DAILY 03/04/21 03/04/21 History Respimat 2.5 Mcg] Vit C/E/Zn/Coppr/Lutein/Zeaxan 1 cap PO BID 03/04/21 03/04/21 History [Preservision Areds 2 Softgel] Apixaban [Eliquis] 5 mg PO BID #60 tab 03/05/21 Rx Allergies Allergy/AdvReac Type Severity Reaction Status Date / Time No Known Allergies Allergy Verified 03/04/21 16:28 Physical Exam Vitals: Vital Signs Temp Pulse Pulse Resp BP BP Pulse Ox 03/05/21 03:08 84 03/05/21 03:02 84 03/05/21 02:00 97.5 F L 66 16 125/74 96 03/05/21 00:00 65 114/74 92 L 03/04/21 23:45 73 135/68 92 L 03/04/21 23:30 71 124/69 95 03/04/21 23:15 90 129/69 98 03/04/21 23:00 88 145/71 98 03/04/21 22:45 96 121/71 96 03/04/21 22:30 92 118/73 97 03/04/21 22:15 95 138/76 98 03/04/21 21:55 82 162/78 98 03/04/21 21:40 84 16 169/50 99 03/04/21 21:25 82 16 134/67 99 03/04/21 21:10 84 16 126/65 99 03/04/21 21:05 16 135/70 99 03/04/21 20:00 159 H 20 03/04/21 19:50 98.0 F 159 H 20 135/88 98 03/04/21 19:17 98.1 F 93 18 129/75 98 03/04/21 16:07 96 18 117/64 98 03/04/21 15:08 98.3 F 95 22 136/71 99 Intake and Output 03/04/21 03/05/21 03/05/21 22:59 06:59 14:59 Other: # Voids 1 1 Weight 84.822 kg Results CBC & Chem 7: 03/05/21 05:05 03/05/21 05:05 Labs: Abnormal Lab Results - Last 24 Hours (Table) 03/04/21 03/04/21 03/04/21 Range/Units 15:53 15:53 23:29 WBC 11.2 H (3.8-10.6) k/uL Hct (34.0-46.0) % Neutrophils # 8.0 H (1.3-7.7) k/uL Eosinophils # (0-0.7) k/uL APTT 49.8 H (22.0-30.0) sec Sodium (137-145) mmol/L BUN 21 H (7-17) mg/dL Glucose 119 H (74-99) mg/dL Magnesium 1.5 L (1.6-2.3) mg/dL AST 42 H (14-36) U/L ALT 41 H (4-34) U/L Alkaline Phosphatase 159 H (38-126) U/L Total Protein (6.3-8.2) g/dL Albumin (3.5-5.0) g/dL 03/05/21 03/05/21 Range/Units 05:05 05:05 WBC (3.8-10.6) k/uL Hct 33.9 L (34.0-46.0) % Neutrophils # (1.3-7.7) k/uL Eosinophils # 0.8 H (0-0.7) k/uL APTT (22.0-30.0) sec Sodium 136 L (137-145) mmol/L BUN 18 H (7-17) mg/dL Glucose 105 H (74-99) mg/dL Magnesium (1.6-2.3) mg/dL AST 43 H (14-36) U/L ALT 36 H (4-34) U/L Alkaline Phosphatase 127 H (38-126) U/L Total Protein 6.2 L (6.3-8.2) g/dL Albumin 3.4 L (3.5-5.0) g/dL Thrombosis Risk Factor Assmnt - Choose All That Apply Any of the Below Risk Factors Present?: Yes Each Factor Represents 1 point: Abnormal pulmonary function (COPD), Obesity (BMI >25) Each Risk Factor Represents 3 Points: Age 75 years or older Thrombosis Risk Factor Assessment Total Risk Factor Score: 5 Thrombosis Risk Factor Assessment Level: High Risk
[2021-03-05] MEDS: ALBUTEROL NEBULIZED 2.5 MG/3 ML INHALATION SCH ×2 (16:03→20:06)
[2021-03-05] MEDS ORDERED: POTASSIUM CHLORIDE ER 20 MEQ TAB.ER PO SCH (17:00)
[2021-03-05] MEDS ORDERED: METOPROLOL TARTRATE 50 MG TAB PO STA (17:42)
[2021-03-05] MEDS: PANTOPRAZOLE 40 MG TABLET PO SCH (20:21)
[2021-03-05] MEDS: ATORVASTATIN 10 MG TAB PO SCH (20:21)
[2021-03-05] MEDS: MONTELUKAST 10 MG TAB PO SCH (20:21)
[2021-03-05] MEDS: DILTIAZEM 125 MG in SODIUM CHLORIDE 0.9% 100 ML IV SCH (20:21)
[2021-03-06] MEDS ORDERED: CAFFEINE CITRATE 60 MG/3 ML VIAL IV PRN (05:00)
[2021-03-06] MEDS ORDERED: AMINOPHYLLINE 500 MG/20 ML VIAL IV PRN (05:00)
[2021-03-06] MEDS: LEVOTHYROXINE 88 MCG TAB PO SCH (06:04)
[2021-03-06 06:33] LABS: Basophils % (A) 0 %; Eosinophils # (A) 0.9 k/uL (0-0.7); Eosinophils % (A) 10 %; HCT 35.1 % (34.0-46.0); HGB 11.7 gm/dL (11.4-16.0); Lymphocytes % (A) 21 %; MCH 29.9 pg (25.0-35.0); MCHC 33.5 g/dL (31.0-37.0); MCV 89.3 fL (80.0-100.0); Mean Platelet Volume 8.8; Monocytes # (A) 0.6 k/uL (0-1.0); Monocytes % (A) 7 %; Neutrophils # (A) 5.4 k/uL (1.3-7.7); Neutrophils % (A) 59 %; Platelet Count 200 k/uL (150-450); RBC 3.93 m/uL (3.80-5.40); WBC 9.1 k/uL (3.8-10.6)
[2021-03-06 06:50] LABS: Prothrombin Time 10.6 sec (9.0-12.0)
[2021-03-06] MEDS ORDERED: REGADENOSON 0.4 MG/5 ML SYRINGE IV PRN (07:00)
[2021-03-06] MEDS: MULTIVITAMINS, THERA 1 EACH TAB PO SCH ×2 (07:30→07:32)
[2021-03-06] MEDS: LORATADINE 10 MG TAB PO SCH (07:32)
[2021-03-06] MEDS: LOSARTAN 50 MG TAB PO SCH (07:32)
[2021-03-06 07:39] LABS: ALT 38 U/L (4-34); AST 43 U/L (14-36); African American GFR (CKD) 77 (>60 ml/min/1.73 sqM); Albumin 3.5 g/dL (3.5-5.0); Albumin/Globulin Ratio 1.3; Alkaline Phosphatase 139 U/L (38-126); Anion Gap 6 mmol/L; Blood Urea Nitrogen 18 mg/dL (7-17); Calcium 8.8 mg/dL (8.4-10.2); Carbon Dioxide 29 mmol/L (22-30); Chloride 102 mmol/L (98-107); Globulin 2.7 g/dL; Glucose 99 mg/dL (74-99); Magnesium 1.8 mg/dL (1.6-2.3); Non-African American GFR(CKD) 66 (>60 ml/min/1.73 sqM); Potassium 4.1 mmol/L (3.5-5.1); Sodium 137 mmol/L (137-145); Total Bilirubin 0.6 mg/dL (0.2-1.3); Total Protein 6.2 g/dL (6.3-8.2)
[2021-03-06] MEDS: METOPROLOL TARTRATE 50 MG TAB PO SCH (08:40)
[2021-03-06] MEDS: FUROSEMIDE 40 MG TAB PO SCH (08:40)
[2021-03-06] MEDS ORDERED: DILTIAZEM DRIP BOLUS FROM BAG 1 MG SOLN IV ONE (08:41)
[2021-03-06] MEDS: DILTIAZEM 125 MG in SODIUM CHLORIDE 0.9% 100 ML IV SCH (09:14)
[2021-03-06] MEDS: ALBUTEROL NEBULIZED 2.5 MG/3 ML INHALATION SCH ×3 (09:28→15:47)
[2021-03-06] MEDS: SYMBICORT 160-4.5 MCG INHALER INHALATION SCH (09:28)
[2021-03-06] MEDS: TIOTROPIUM 2.5 MCG INHALER INHALATION SCH (09:29)
[2021-03-06] MEDS ORDERED: DILTIAZEM ORAL 30 MG TAB PO SCH (09:45)
--- NOTE | 2021-03-06 12:54 | EST ---
EXERCISE STRESS AGE: 75 SEX: Female HT: 5'4" WT: 186 lbs. PROTOCOL: Lexiscan Cardiolite STAGE: N/A DURATION OF EXERCISE: N/A HEART RATE REST: 66 BLOOD PRESSURE REST: 105/71 MAXIMUM HEART RATE ACHIEVED: 78 MAXIMUM BLOOD PRESSURE: 112/63 85% MPHR: 122 100% MPHR: 144 METS: N/A INDICATIONS: Chest pain. CLINICAL INFORMATION: Baseline EKG shows sinus rhythm, left axis deviation and nonspecific ST-T wave changes. The patient was given intravenous Lexiscan as per protocol. Did not have chest pain or diagnostic ST-segment depression. The patient had bradycardia following Lexiscan infusion that resolved spontaneously. CONCLUSIONS: 1. Negative stress test by EKG criteria. 2. Cardiolite portion of the stress test will be reported separately. MMODL / IJN: [id number] /
--- NOTE | 2021-03-06 13:13 | NM ---
EXAMINATION TYPE: NM stress lexiscan cardiolite DATE OF EXAM: 03/06/2021 COMPARISON: NONE HISTORY: Chest pain and heart palpitations TECHNIQUE: After the intravenous administration of 9.5 mCi Tc 99m Sestamibi - Cardiolite resting SPE CT images acquired 40 minutes post injection. At peak stress 24 mCi Tc 99m Sestamibi - Stress images obtained 30 minutes post injection The patient was stressed with 0.4mg Lexiscan. FINDINGS: No fixed defects are evident. No reversible stress defects on Spect images Wall motion is normal. Ejection fraction is calculated to be 61 %. IMPRESSION: 1. No stress-induced ischemic changes.
[2021-03-06] MEDS ORDERED: APIXABAN 5 MG TAB PO SCH (13:30)
[2021-03-06] MEDS ORDERED: AMIODARONE 200 MG TAB PO SCH (13:45)
--- NOTE | 2021-03-06 14:01 | P.PN ---
Subjective Progress Note Date: 03/06/21 HISTORY OF PRESENT ILLNESS: Patient examined this morning. She denies chest pain or pressure. She reports mild shortness of breath. She recently received a breathing treatment. She r eports palpitations this morning. Patient was found in A. fib with RVR. Patient received her morning dose of metoprolol and was started on a Cardizem drip. She has since converted to sinus mechanism. Patient underwent Lexiscan stress test with no evidence of stress-induced ischemia. PHYSICAL EXAM: VITAL SIGNS: Reviewed. GENERAL: Well-developed in no acute distress. NECK: Supple. No JVD or thyromegaly LUNGS: Respirations even and unlabored. Lungs diminished with expiratory wheezing noted. HEART: Regular rate and rhythm. S1 and S2 heard. Systolic murmur noted. EXTREMITIES: Normal range of motion. No clubbing or cyanosis. Peripheral pulses intact. No lower extremity edema ASSESSMENT: Chest pain Palpitations New onset paroxysmal atrial fibrillation with RVR Hypertension Hyperlipidemia COPD Mildly elevated LFTs Obesity PLAN: Ashley scan completed without evidence of stress induced ischemia Discontinue IV heparin Begin Eliquis 5mg PO BID Continue current dose of metoprolol Begin amio 200mg PO BID Patient with mildly elevated LFTs. Patient needs to have LFTs rechecked at her follow up outpatient. Patient to see Dr. Guzman within [address] Guzman to wean down amio at her follow up appointment and follow up on patients LFTs as well. Nurse practitioner note has been reviewed by physician. Signing provider agrees with the documented findings, assessment, and plan of care. Objective - Vital Signs Vital signs: Vital Signs Temp 98.0 F 03/06/21 09:36 Pulse 72 03/06/21 12:33 Resp 16 03/06/21 09:36 BP 135/80 03/06/21 09:36 Pulse Ox 100 03/06/21 09:36 Intake & Output 03/05/21 03/06/21 03/06/21 18:59 06:59 18:59 Intake Total 1020 210.016 Balance 1020 210.016 Weight 84.82 kg Intake: Intake, IV Titration 210.016 Amount Diltiazem 125 mg In 125 Sodium Chloride 0.9% 100 ml @ 5 MG/HR 5 mls/hr IV .Q24H [facility] Rx#:[id number] Heparin Sod,Pork in 0.45% 85.016 NaCl 25,000 unit In 0.45 % NaCl 1 250ml.bag @ 11. 789 UNITS/KG/HR 10 mls/hr IV .Q24H [facility] Rx#: [id number] Oral 1020 Other: # Voids 2 1 3 - Labs CBC & Chem 7: 03/06/21 05:24 03/06/21 05:24 Labs: Abnormal Lab Results - Last 24 Hours (Table) 03/05/21 03/06/21 03/06/21 Range/Units 19:14 05:24 05:24 Eosinophils # 0.9 H (0-0.7) k/uL APTT 55.4 H (22.0-30.0) sec BUN 18 H (7-17) mg/dL AST 43 H (14-36) U/L ALT 38 H (4-34) U/L Alkaline Phosphatase 139 H (38-126) U/L Total Protein 6.2 L (6.3-8.2) g/dL
--- NOTE | 2021-03-06 14:34 | P.DS ---
Providers Date of admission: 03/05/21 09:17 Expected date of discharge: 03/06/21 Attending physician: Kiley Felder Consults: 03/04/21 17:29 Consult Physician Urgent Consulting Provider: Nash Whitten Consult Reason/Comments: ua Do you want consulting provider notified?: Yes Primary care physician: Kiley Felder [facility] Course: HISTORY OF PRESENT ILLNESS This is a 75-year-old female patient with past medical history of hypertension, hyperlipidemia, gastroesophageal reflux disease with esophagitis without bleeding, vitamin D deficiency, ALLERGIC rhinitis, hypothyroidism, COPD, mild persistent ALLERGIC asthma. Patient was in the office yesterday and had complaints of discomfort in her chest midsternal area and EKG was done that showed nonspecific findings which patient was in a sinus rhythm at the time. She now states that her chest discomfort is resolved but she is complaining of wheezing. Her biblical languages professor is Dr. Guzman and she had a heart catheterization done 6 months ago. Patient was brought into [facility] emergency center for evaluation. Temperature was normal, heart rate 95, blood pressure 136/71, pulse ox 99% on room air. EKG was a sinus rhythm WBC 11.2, hemoglobin 12.4 and platelet count 227. Electrolytes were normal. BUN 21 creatinine 0.86. Blood sugar 119. Magnesium 1.5 and was replaced. Total bilirubin 0.4. AST 42, ALT 41, alkaline phosphatase 159. Troponins are negative 3. Triglycerides 136, cholesterol 148, LDL 64, HDL 57. Coronavirus PCR not detected. Chest x-ray shows no acute cardiopulmonary disease. Minimal pulmonary fibrotic changes. Patient was transferred to the observation unit and when arrived was in SVT. Cardiology was contacted. Patient performs Valsalva maneuver 2 without improvement. Patient was given adenosine 6 mg and A-Team was called. Patient converted to atrial fibrillation and the 80s. She was then started on Cardizem drip and heparin drip. Cardizem drip was subsequently discontinued. Patient remains in atrial fibrillation with controlled rate. 03/06: She states she had another episode of the chest pain and fluttering and she had gone into A. fib with RVR subsequently converted to sinus rhythm. Cardiology did start her on amiodarone today. Plan is to continue amiodarone 200 mg twice daily. Patient has been started on eliquis. Lexiscan Cardiolite stress test was negative and patient was cleared for discharge by cardiology. Echocardiogram reveals EF of 60-65% with mild concentric left ventricular hypertrophy, mild aortic regurgitation, mild mitral regurgitation, mild tricuspid regurgitation. Patient will be discharged home today in stable condition. ASSESSMENT AND PLAN 1. Chest pain with negative troponins. Acute coronary syndrome has been ruled out. 2. New onset atrial fibrillation, paroxysmal atrial fibrillation. 3. Hypomagnesemia. 4. Hypertension hypertensive cardiovascular disease. 5. Hyperlipidemia. 6. Seasonal ALLERGIES. 7. Gastroesophageal reflux disease. 8. COPD and Moderate intermittent asthma with exacerbation. 9. Hypothyroidism. 10. Mild elevation in liver function tests possibly related to hypoperfusion. 11. COVID-19 testing negative. Patient has been hospitalized during a pandemic. DISCHARGE PLAN home Impression and plan of care have been directed as dictated by the signing physician. Lila Frederick nurse practitioner acting as scribe for signing physician. Plan - Discharge Summary New Discharge Prescriptions: New Amiodarone [Cordarone] 200 mg PO BID #60 tab Apixaban [Eliquis] 5 mg PO BID #60 tab Metoprolol Tartrate [Lopressor] 50 mg PO BID #60 tab Continue Potassium Chloride ER [K-Dur 20] 20 meq PO DAILY@1700 Losartan [Cozaar] 50 mg PO DAILY Furosemide [Lasix] 40 mg PO DAILY Atorvastatin [Lipitor] 10 mg PO HS Discontinued Aspirin EC [Ecotrin] 325 mg PO DAILY Atenolol [Tenormin] 50 mg PO DAILY No Action Multivitamins, Thera [Multivitamin (formulary)] 1 tab PO DAILY Vit C/E/Zn/Coppr/Lutein/Zeaxan [Preservision Areds 2 Softgel] 1 cap PO BID Levothyroxine Sodium [Synthroid] 88 mcg PO DAILY Tiotropium 2.5 Mcg/Puff [Spiriva Respimat 2.5 Mcg] 2 puff INHALATION RT-DAILY Mupirocin 2% Oint [Bactroban 2% Oint] 1 applic EA NOSTRIL BID Montelukast Sodium [Singulair] 10 mg PO HS Budesonide/Formoterol Fumarate [Symbicort 160-4.5 Mcg Inhaler] 2 puff INHALATION RT-BID Albuterol Sulfate [Proair Hfa] 2 puff INHALATION RT-Q6H PRN PRN Reason: Shortness Of Breath Omeprazole [PriLOSEC] 40 mg PO HS Levalbuterol Nebulized [Xopenex Nebulized] 1.25 mg INHALATION RT-QID PRN PRN Reason: Shortness Of Breath Loratadine 10 mg PO DAILY Biotin 10,000 mcg PO DAILY Discharge Medication List Albuterol Sulfate [Proair Hfa] 2 puff INHALATION RT-Q6H PRN 03/04/21 [History] Atorvastatin [Lipitor] 10 mg PO HS 03/04/21 [History] Biotin 10,000 mcg PO DAILY 03/04/21 [History] Budesonide/Formoterol Fumarate [Symbicort 160-4.5 Mcg Inhaler] 2 puff INHALATION RT-BID 03/04/21 [History] Furosemide [Lasix] 40 mg PO DAILY 03/04/21 [History] Levalbuterol Nebulized [Xopenex Nebulized] 1.25 mg INHALATION RT-QID PRN 03/04/21 [History] Levothyroxine Sodium [Synthroid] 88 mcg PO DAILY 03/04/21 [History] Loratadine 10 mg PO DAILY 03/04/21 [History] Losartan [Cozaar] 50 mg PO DAILY 03/04/21 [History] Montelukast Sodium [Singulair] 10 mg PO HS 03/04/21 [History] Multivitamins, Thera [Multivitamin (formulary)] 1 tab PO DAILY 03/04/21 [History] Mupirocin 2% Oint [Bactroban 2% Oint] 1 applic EA NOSTRIL BID 03/04/21 [History] Omeprazole [PriLOSEC] 40 mg PO HS 03/04/21 [History] Potassium Chloride ER [K-Dur 20] 20 meq PO DAILY@1700 03/04/21 [History] Tiotropium 2.5 Mcg/Puff [Spiriva Respimat 2.5 Mcg] 2 puff INHALATION RT-DAILY 03/04/21 [History] Vit C/E/Zn/Coppr/Lutein/Zeaxan [Preservision Areds 2 Softgel] 1 cap PO BID 03/04/21 [History] Apixaban [Eliquis] 5 mg PO BID #60 tab 03/05/21 [Rx] Amiodarone [Cordarone] 200 mg PO BID #60 tab 03/06/21 [Rx] Metoprolol Tartrate [Lopressor] 50 mg PO BID #60 tab 03/06/21 [Rx] Follow up Appointment(s)/Referral(s): Rajat Guzman MD [REFERRING] - 1 Week Kiley Felder MD [Primary Care Provider] - 1 Week Activity/Diet/Wound Care/Special Instructions: Patient to have LFTs drawn at follow up appointment Discharge Disposition: HOME SELF-CARE
[2021-03-06 15:21] VITALS: BP 101/61; TEMP 97.8
[2021-03-06 15:59] VITALS: PULSE 72
== END 2021-03-06 16:08 | disposition home or self-care (01) ==
LOC: EC 15:04 → 6NMEDSUR 17:29 → OBSVTOIN 03-05 09:17 → INTOOBSV 03-05 09:17 → UNDODISIN 03-06 16:08
PROVIDERS: ADMIT Internal Medicine; ATTEND Internal Medicine
DX: R07.89 Other chest pain (principal); J45.21 Mild intermittent asthma with (acute) exacerbation; I48.0 Paroxysmal atrial fibrillation; I11.9 Hypertensive heart disease without heart failure; J44.9 Chronic obstructive pulmonary disease, unspecified; E83.42 Hypomagnesemia; I08.3 Combined rheumatic disorders of mitral, aortic and tricuspid valves; K21.00 Gastro-esophageal reflux disease with esophagitis, without bleeding; R74.8 Abnormal levels of other serum enzymes; E78.5 Hyperlipidemia, unspecified; E03.9 Hypothyroidism, unspecified; I47.1 Supraventricular tachycardia; E66.9 Obesity, unspecified; Z68.32 Body mass index [BMI] 32.0-32.9, adult; M85.88 Other specified disorders of bone density and structure, other site; Z20.822 Contact with and (suspected) exposure to COVID-19; Z79.82 Long term (current) use of aspirin; Z79.51 Long term (current) use of inhaled steroids; Z79.890 Hormone replacement therapy; Z79.899 Other long term (current) drug therapy; Z90.711 Acquired absence of uterus with remaining cervical stump; Z98.890 Other specified postprocedural states; Z82.0 Family history of epilepsy and other diseases of the nervous system
CPT/HCPCS: 96365 ×2; 96366 ×3; 96368 ×2; 93005 ×3; 99291; 36415; 94640 ×4; 94760; 93017; 93306; 80061; 80053 ×3; 84443; 83735 ×3; 84484 ×2; 85025 ×3; 85610 ×2; 85730 ×2; 87635; 71046; 78452; G0378 ×3; A9500; J1644 ×3; J3475; 99285

== ENCOUNTER → 2021-03-28 | Outpatient (CLI) | payer MEDICARE ==
--- NOTE | 2021-03-28 09:08 | US ---
EXAMINATION TYPE: US liver DATE OF EXAM: 03/28/2021 COMPARISON: NONE CLINICAL HISTORY: R94.5 elevated liver enzymes. EXAM MEASUREMENTS: Liver Length: 11.3 cm Gallbladder Wall: 0.2 cm CBD: 0.5 cm Right Kidney: 9.2 x 4.5 x 3.7 cm Pancreas: Tail obscured by overlying bowel gas Liver: Increased attenuation, decreased visualization of vessels suggestive of fatty infiltrate Gallbladder: wnl Evidence for sonographic Rice's sign: No CBD: wnl Right Kidney: Inferior pole obscured by overlying bowel gas Visualized liver heterogeneously hyperechoic. Evaluation for focal masses suboptimal due to the heter ogeneity. No biliary dilatation is seen. IMPRESSION: Heterogeneous hyperechoic appearance of liver could be on basis of diffuse fatty infiltra tion and/or underlying hepatocellular disease. Patient may benefit with random biopsy and/or ultrasou nd elastography evaluation.
== END | disposition home or self-care (01) ==
LOC: RADUSWWP 08:29
PROVIDERS: ATTEND Internal Medicine
DX: R93.2 Abnormal findings on diagnostic imaging of liver and biliary tract (principal)
CPT/HCPCS: 76705

== ENCOUNTER → 2022-04-11 | Outpatient (CLI) | payer MEDICARE ==
--- NOTE | 2022-04-11 08:51 | US ---
EXAMINATION TYPE: US liver DATE OF EXAM: 04/11/2022 COMPARISON: NONE CLINICAL HISTORY: R74.8 ELEVATED LIVER ENZYMES. elevated labs, no symptoms EXAM MEASUREMENTS: Liver Length: 17.6 cm Gallbladder Wall: 0.2 cm CBD: 0.6 cm Right Kidney: 9.9 x 3.3 x 4.6 cm Pancreas: wnl Liver: wnl Gallbladder: wnl Evidence for sonographic Rice's sign: no CBD: wnl Right Kidney: wnl IMPRESSION: No significant abnormality seen.
== END | disposition home or self-care (01) ==
LOC: RADUSWWP 08:14
PROVIDERS: ATTEND Internal Medicine
DX: R74.8 Abnormal levels of other serum enzymes (principal)
CPT/HCPCS: 76705

== ENCOUNTER → 2022-08-06 | Outpatient (CLI) | payer MEDICARE ==
--- NOTE | 2022-08-07 07:49 | CT ---
EXAMINATION TYPE: CT ChestAbdPelvis w con DATE OF EXAM: 08/06/2022 INDICATION: Anemia unspecified, abdominal pain COMPARISON: None CT DLP: 1600 mGycm CONTRAST: Performed with Oral Contrast and with IV Contrast, patient injected with 70 mL of Isovue 300. TECHNIQUE: Axial images at 5 mm thick sections. Reconstructed images in the coronal plane. Delayed images through the kidneys. FINDINGS: CT CHEST: Portion of the thyroid visualized is normal. There is a punctate density within the posterior right lung, series 4 image 11. Some minimal pleural thickening may be present at this level. There is a nodule measuring 0.5 cm in the lateral left upper lung field. Series 4 image 19. Some pneumonitis type changes in the anterior right lung. There is a 0.4 cm density which may be within the right minor fissure, series 4 image 34. A pneumatoceles in the posterior lateral left lung base. Some mild nonspecific increased lung markings are in the periphery of the right lung base. No enlarged mediastinal or hilar adenopathy is evident. The ascending aorta diameter at the level of the main pulmonary artery is 4.4 cm. The main pulmonary artery diameter at the bifurcation is 3.3 cm. Coronary artery calcification is present. CT ABDOMEN: Liver: Normal Spleen: Calcification is within the spleen. Pancreas: Normal Adrenal glands: The adrenal glands are normal. Gallbladder: Normal Kidneys: No masses are evident. No hydronephrosis is present. No cysts are present. Delayed images were obtained through the kidneys, which remain unremarkable. Aorta: Vascular calcification is within the aorta. Inferior vena cava: Normal. CT PELVIS: Loops of bowel within the abdomen and pelvis are normal. There are scattered diverticuli within the sigmoid colon. There are loops of bowel which are incompletely distended or lack oral contrast limi ting their evaluation. Appendix: Normal as visualized. Urinary bladder: Normal. Genitourinary structures: Uterus and ovaries are not identified. Osseous structures: No suspicious lytic or sclerotic lesions. There is a sclerotic area within the po sterior right sacral alar, image 88 which is nonspecific. Facet degenerative changes present L5-S1 an d to a lesser degree L4-5. IMPRESSIONS: 1. Couple of small nonspecific densities within the lung crain. Precautionary follow up CT chest in 6 months is recommended. These should be confirmed as stable over the course of 2 years. 2. No suspicious abnormality to account for upper abdomen pain. 3. Diverticulosis without acute diverticulitis.
== END | disposition home or self-care (01) ==
LOC: RADCTMAIN 08:41
PROVIDERS: ATTEND Internal Medicine
DX: D64.9 Anemia, unspecified (principal)
CPT/HCPCS: 82565; 84520; 71260; 74177; 36415; Q9967 ×2

== ENCOUNTER → 2024-02-25 | Outpatient (CLI) | payer MEDICARE ==
--- NOTE | 2024-02-25 13:06 | MM ---
Reason for Exam: Screening (asymptomatic). Last mammogram was performed 1 year(s) and 2 month(s) ago. Patient History: Menarche at age 9. First Full-Term at age 21. Hysterectomy at age 29. Postmenopausal. Mother had breast cancer under age 50. Risk Values: Kim 5 year model risk: 3.5%. NCI Lifetime model risk: 5.9%. Prior Study Comparison: 09/28/2018 Screening Mammogram, [facility]. 12/10/2021 Bilateral Screening Mammogram, [facility]. 01/16/2023 Bilateral MG 3D screening mammo w/cad, [facility]. Tissue Density: The breasts are heterogeneously dense, which may obscure small masses. Findings: Analyzed By CAD. There is no suspicious group of microcalcifications or new suspicious mass in either breast. Overall Assessment: Benign, BI-RAD 2 Management: Screening Mammogram of both breasts in 1 year. . Patient should continue monthly self-breast exams. A clinical breast exam by your physician is recommended on an annual basis. This exam should not preclude additional follow-up of suspicious palpable abnormalities. Note on Kim scores and lifetime risk: 1. A Kim score greater than 3% is considered moderate risk. If this is the case, consider specialist referral to assess eligibility for a risk reducing agent. 2. If overall lifetime risk for the development of breast cancer is 20% or higher, the patient may qualify for future screening with alternating mammogram and breast MRI. Electronically signed and approved by: Yonis Lee M.D. Radiologis
== END | disposition home or self-care (01) ==
LOC: RADMAMWWP 10:26
PROVIDERS: ATTEND Internal Medicine
DX: Z12.31 Encounter for screening mammogram for malignant neoplasm of breast (principal); Z80.3 Family history of malignant neoplasm of breast; Z78.0 Asymptomatic menopausal state
CPT/HCPCS: 77063; 77067

== ENCOUNTER → 2024-05-16 | Outpatient (CLI) | payer MEDICARE ==
--- NOTE | 2024-05-16 10:55 | BD ---
EXAMINATION TYPE: Axial Bone Density DATE OF EXAM: 05/16/2024 CLINICAL HISTORY: 79 years old Female. ICD-10 CODE: M85.88 OTH DISRD OF BONE DENSITY AND STRUCTURE, O Height: 62 Weight: 173.7 FRAX RISK QUESTIONS: Alcohol (3 or more units per day): no Family History (Parent hip fracture):mother Glucocorticoids (More than 3mos): no (Ex: prednisone, prednisolone, methylprednisolone, dexamethasone, and hydrocortisone). History of Fracture in Adulthood: ribs Secondary Osteoporosis: 1. Type 1 Diabetes: no 2. Hyperthyroidism: no 3. Menopause before 45: yes 4. Malnutrition: no 5. Chronic liver disease: no Rheumatoid Arthritis: no Current Tobacco Use: no RISK FACTORS HISTORY OF: Hip Fracture (Right/Left): no Spine Fracture: no History of Wrist Fracture: no Surgery to Spine/Hip(right/left)/Wrist (right/left): no MEDICATIONS: Thyroid Medications: synthroid How Long: past 10 years Osteoporosis Medications: alendronate weekly Which medication: How Long: past 2 years EXAM MEASUREMENTS: Bone mineral densitometry was performed using the [employer] System. Bone mineral density as measured about the Lumbar spine is: ----- L1-L4(G/cm2): 0.954 T Score Values are as follows: ----- L1: -2.4 ----- L2: -2.3 ----- L3: -1.5 ----- L4: -1.7 ----- L1-L4: -1.9 Z Score Values are as follows: ----- L1: -1.0 ----- L2: -0.9 ----- L3: -0.1 ----- L4: -0.4 ----- L1-L4: -0.5 Bone mineral density has: increased 1.4 since the study of 12/10/2021 Bone mineral density about the R hip (g/cm2): 0.922 Bone mineral density about the L hip (g/cm2): 1.003 T Score values are as follows: -----R Neck: -1.3 -----L Neck: -1.4 -----R Total: -0.7 -----L Total: 0.0 Z Score values are as follows: -----R Neck: 0.5 -----L Neck: 0.4 -----R Total: 1.0 -----L Total: 1.6 Bone mineral density has: increased 5.1 since the study of 12/10/2021 FRAX%s: The graph provided illustrates a 29.5chance for a major osteoporotic fx and a 15.2chance for the hips probability for fx in 10 years time. IMPRESSION: Osteopenia (T Score between -2.5 and -1). There is slightly increased risk of fracture and the patient may be considered for treatment. Re-Screen 2-5 years. NOTE: T-SCORE=SD OF THE YOUNG ADULT MEAN.
== END | disposition home or self-care (01) ==
LOC: RADBDWWP 08:51
PROVIDERS: ATTEND Internal Medicine
DX: M85.89 Other specified disorders of bone density and structure, multiple sites (principal); Z78.0 Asymptomatic menopausal state
CPT/HCPCS: 77080

== ENCOUNTER → 2025-04-06 | Outpatient (CLI) | payer MEDICARE ==
--- NOTE | 2025-04-06 09:54 | MM ---
Reason for Exam: Screening (asymptomatic). Last mammogram was performed 1 year(s) and 1 month(s) ago. Patient History: Menarche at age 9. First Full-Term at age 21. Hysterectomy at age 29. Postmenopausal. Mother had breast cancer under age 50. Risk Values: Kim 5 year model risk: 3.5%. NCI Lifetime model risk: 5.3%. Prior Study Comparison: 12/10/2021 Bilateral Screening Mammogram, [facility]. 01/16/2023 Bilateral MG 3D screening mammo w/cad, [facility]. 02/25/2024 Bilateral MG 3D screening mammo w/cad, [facility]. Tissue Density: There are scattered areas of fibroglandular density. Findings: Analyzed By CAD. There are benign-appearing round and vascular calcifications bilaterally redemonstrated. Benign-appearing bilateral axillary lymph nodes are redemonstrated. There is no suspicious group of microcalcifications or new suspicious mass in either breast. Overall Assessment: Benign, BI-RAD 2 Management: Screening Mammogram of both breasts in 1 year. . Patient should continue monthly self-breast exams. A clinical breast exam by your physician is recommended on an annual basis. This exam should not preclude additional follow-up of suspicious palpable abnormalities. Note on Kim scores and lifetime risk: 1. A Kim score greater than 3% is considered moderate risk. If this is the case, consider specialist referral to assess eligibility for a risk reducing agent. 2. If overall lifetime risk for the development of breast cancer is 20% or higher, the patient may qualify for future screening with alternating mammogram and breast MRI. [facility], , 04/06/2025 9:51 AM. Electronically signed and approved by: Vini Goncalves M.D.
== END | disposition home or self-care (01) ==
LOC: RADMAMWWP 09:30
PROVIDERS: ATTEND Internal Medicine
DX: Z12.31 Encounter for screening mammogram for malignant neoplasm of breast (principal); R92.323 Mammographic fibroglandular density, bilateral breasts; R92.1 Mammographic calcification found on diagnostic imaging of breast; Z78.0 Asymptomatic menopausal state; Z80.3 Family history of malignant neoplasm of breast
CPT/HCPCS: 77063; 77067